=== PATIENT | female | born 1995 | race Caucasian/White ===

== ENCOUNTER 2023-01-13 20:50 | Emergency (ER) | payer SELFPAY ==
[2023-01-13] MEDS ORDERED: EPINEPHrine 1 MG/ML SDV IM ONE (21:00)
[2023-01-13] MEDS ORDERED: Sodium Chloride 0.9% 500 ML IV ONE (21:02)
[2023-01-13] MEDS ORDERED: diphenhydrAMINE 50 MG/ML SDV IVPUSH ONE (21:03)
[2023-01-13] MEDS ORDERED: Sodium Chloride 0.9% 500 ML IV SCH (21:30)
[2023-01-17] MEDS ORDERED: Sodium Chloride 0.9% 10 ML Syringe FLUSH PRN (20:42)
== END 2023-01-13 22:00 | disposition home or self-care (01) ==
LOC: LL.ED 20:50 → SUPCPDRO 20:50 → LL.ED 22:00
DX: T63.481D Toxic effect of venom of other arthropod, accidental (unintentional), subsequent encounter (principal); Z88.0 Allergy status to penicillin
CPT/HCPCS: 96372; 96374; 99283; 99283-25; J0171; J1200

== ENCOUNTER 2023-02-22 09:16 | Emergency (ER) | payer SELFPAY | END 2023-02-22 09:20 | disposition left against medical advice (07) | LOC: LL.ED 09:16 | DX: Z53.21 Procedure and treatment not carried out due to patient leaving prior to being seen by health care provider (principal) ==

== ENCOUNTER 2023-02-22 10:41 | Emergency (ER) | payer MEDICAID ==
[2023-02-22] MEDS ORDERED: Ketorolac 30 MG/ML SDV IM ONE (10:53)
[2023-02-22] MEDS ORDERED: Sodium Chloride 0.9% 1,000 ML IV ONE (11:20)
[2023-02-22] MEDS ORDERED: Ondansetron 4 MG Tab.DIS PO ONE (11:20)
[2023-02-22] MEDS ORDERED: Naloxone 0.4 MG/ML SDV IVPUSH PRN (11:21)
[2023-02-22] MEDS ORDERED: fentaNYL 50 MCG/ML SDV IVPUSH ONE (11:21)
[2023-02-22 11:22] LABS: BASOPHILS ABSOLUTE AUTO 0.05 K/uL (0.00-0.20); BASOPHILS PERCENT AUTO 0.2 % (0.0-2.0); EOSINOPHILS ABSOLUTE AUTO 0.17 K/uL (0.00-0.50); EOSINOPHILS PERCENT AUTO 0.8 % (0.0-5.0); HEMATOCRIT 41.4 % (34.0-46.0); HEMOGLOBIN 13.8 g/dL (11.7-15.5); LYMPHOCYTES ABSOLUTE AUTO 1.66 K/uL (0.50-3.50); LYMPHOCYTES PERCENT AUTO 7.7 % (10.0-50.0); MEAN CORPUSCULAR HEMOGLOBIN 30.8 pg (28.2-33.3); MEAN CORPUSCULAR HGB CONC 33.3 g/dL (31.7-36.0); MEAN CORPUSCULAR VOLUME 92.4 fL (84.0-98.0); MONOCYTES ABSOLUTE AUTO 1.02 K/uL (0.00-1.00); MONOCYTES PERCENT AUTO 4.7 % (2.0-14.0); NEUTROPHILS ABSOLUTE AUTO 18.64 K/uL (1.40-7.00); NEUTROPHILS PERCENT AUTO 86.6 % (45.0-80.0); PLATELET COUNT,PLT 281 K/uL (150-350); RED BLOOD CELL COUNT 4.48 M/uL (3.77-5.09); RED CELL DISTRIBUTION WIDTH 14.2 % (11.2-14.1); WHITE BLOOD CELL COUNT,WBC 21.5 K/uL (4.0-10.2)
[2023-02-22 11:39] LABS: PROTHROMBIN TIME 10.3 SEC (9.0-11.1)
[2023-02-22 11:43] LABS: ACETAMINOPHEN 17.4 ug/mL (10.0-30.0); ALANINE AMINOTRANSFERASE,ALT 17 U/L (12-78); ALBUMIN 3.4 g/dL (3.4-5.0); ALKALINE PHOSPHATASE 91 IU/L (46-116); ASPARTATE AMNIOTRANSFERASE,AST 21 U/L (15-37); BILIRUBIN TOTAL 0.3 mg/dL (0.2-1.0); BLOOD UREA NITROGEN,BUN 8 mg/dL (7-18); CALCIUM 8.3 mg/dL (8.5-10.1); CHLORIDE,CL 106 mmol/L (98-107); CREATININE 1.09 mg/dL (0.51-1.17); EST CRCL DRUG DOSING (CG) 76.06 mL/min; GLUCOSE RANDOM 129 mg/dL (70-99); POTASSIUM,K 3.9 mmol/L (3.5-5.1); PROTEIN TOTAL,TP 6.6 g/dL (6.4-8.2); SODIUM,NA 139 mmol/L (136-145)
[2023-02-22 11:43] LABS: AMPHETAMINES SCREEN, URINE POSITIVE (NEGATIVE); BARBITURATE SCREEN,URINE NEGATIVE (NEGATIVE); BENZODIAZEPINES SCREEN,URINE NEGATIVE (NEGATIVE); COCAINE METABOLITES,URINE NEGATIVE (NEGATIVE); EDDP,URINE SCREEN NEGATIVE (NEGATIVE); METHAMPHETAMINES SCREEN, URINE POSITIVE (NEGATIVE); TCA SCREEN,URINE NEGATIVE (NEGATIVE); THC SCREEN,URINE 50 NG/ML POSITIVE (NEGATIVE)
[2023-02-22 11:45] LABS: BUPRENORPHINE SCREEN,URINE NEGATIVE (NEGATIVE); OXYCODONE SCREEN,URINE NEGATIVE (NEGATIVE)
[2023-02-22 11:46] LABS: ESTIMATED GFR 72 mL/min (>=60); LACTIC ACID 2.6 mmol/L (0.4-2.0)
[2023-02-22 11:47] LABS: ETHANOL BLOOD MEDICAL < 0.000 g/dL (0.000-0.080)
== END 2023-02-22 13:52 ==
LOC: LL.ED 10:41
DX: S02.641A Fracture of ramus of right mandible, initial encounter for closed fracture (principal); F15.10 Other stimulant abuse, uncomplicated; F19.10 Other psychoactive substance abuse, uncomplicated; F17.210 Nicotine dependence, cigarettes, uncomplicated; Z88.0 Allergy status to penicillin; W22.8XXA Striking against or struck by other objects, initial encounter
CPT/HCPCS: 36415; 70450; 70486; 80053; 80143; 80179; 80305; 80307; 83605; 85025; 85610; 96361; 96372; 96374; 99284; 99285; A9270; J1885; J3010; J7030

== ENCOUNTER 2023-03-16 14:13 | Emergency (ER) | payer SELFPAY ==
[2023-03-16] MEDS ORDERED: Sodium Chloride 0.9% 10 ML Syringe FLUSH PRN (14:51)
[2023-03-16 15:09] LABS: BASOPHILS ABSOLUTE AUTO 0.03 K/uL (0.00-0.20); BASOPHILS PERCENT AUTO 0.3 % (0.0-2.0); EOSINOPHILS ABSOLUTE AUTO 0.38 K/uL (0.00-0.50); EOSINOPHILS PERCENT AUTO 3.3 % (0.0-5.0); HEMATOCRIT 37.8 % (34.0-46.0); HEMOGLOBIN 12.5 g/dL (11.7-15.5); LYMPHOCYTES ABSOLUTE AUTO 2.02 K/uL (0.50-3.50); LYMPHOCYTES PERCENT AUTO 17.8 % (10.0-50.0); MEAN CORPUSCULAR HEMOGLOBIN 30.5 pg (28.2-33.3); MEAN CORPUSCULAR HGB CONC 33.1 g/dL (31.7-36.0); MEAN CORPUSCULAR VOLUME 92.2 fL (84.0-98.0); MONOCYTES ABSOLUTE AUTO 0.88 K/uL (0.00-1.00); MONOCYTES PERCENT AUTO 7.8 % (2.0-14.0); NEUTROPHILS ABSOLUTE AUTO 8.04 K/uL (1.40-7.00); NEUTROPHILS PERCENT AUTO 70.8 % (45.0-80.0); PLATELET COUNT,PLT 301 K/uL (150-350); RED CELL DISTRIBUTION WIDTH 13.2 % (11.2-14.1); WHITE BLOOD CELL COUNT,WBC 11.4 K/uL (4.0-10.2)
[2023-03-16] MEDS ORDERED: Ketorolac 15 MG/ML SDV IM ONE (15:12)
[2023-03-16] MEDS ORDERED: cefTRIAXone 1 GM in Sodium Chloride 0.9% 100 ML IV ONE (15:19)
[2023-03-16 15:54] LABS: APPEARANCE,URINE SLIGHTLY CLOUDY; BILIRUBIN,URINE NEGATIVE (NEGATIVE); COLOR,URINE YELLOW; GLUCOSE,URINE NEGATIVE (NEGATIVE); KETONES,URINE NEGATIVE (NEGATIVE); LEUKOCYTE ESTERASE,URINE NEGATIVE (NEGATIVE); NITRITE,URINE NEGATIVE (NEGATIVE); OCCULT BLOOD,URINE MODERATE (NEGATIVE); PH,URINE 5.5 (5.0-9.0); PROTEIN,URINE NEGATIVE (NEGATIVE); UROBILINOGEN,URINE 0.2 E.U./dL (0.2-1.0)
[2023-03-16 16:02] LABS: AMPHETAMINES SCREEN, URINE POSITIVE (NEGATIVE); BARBITURATE SCREEN,URINE NEGATIVE (NEGATIVE); BENZODIAZEPINES SCREEN,URINE NEGATIVE (NEGATIVE); COCAINE METABOLITES,URINE NEGATIVE (NEGATIVE); EDDP,URINE SCREEN NEGATIVE (NEGATIVE); METHAMPHETAMINES SCREEN, URINE POSITIVE (NEGATIVE); TCA SCREEN,URINE NEGATIVE (NEGATIVE); THC SCREEN,URINE 50 NG/ML POSITIVE (NEGATIVE)
[2023-03-16 16:05] LABS: BUPRENORPHINE SCREEN,URINE NEGATIVE (NEGATIVE); OXYCODONE SCREEN,URINE NEGATIVE (NEGATIVE)
[2023-03-16 16:20] LABS: BACTERIA,URINE FEW /HPF (NONE TO FEW); EPITHELIAL CELLS,URINE FEW /LPF; MUCUS,URINE MODERATE /LPF (NEGATIVE); WBC,URINE 0-5 /HPF
[2023-03-16] MEDS ORDERED: Ketorolac 15 MG/ML SDV IVPUSH ONE (16:50)
[2023-03-16 18:22] LABS: ALANINE AMINOTRANSFERASE,ALT 24 U/L (12-78); ALBUMIN 3.3 g/dL (3.4-5.0); ALKALINE PHOSPHATASE 106 IU/L (46-116); ANION GAP 8.8 meq/L (7-15); ASPARTATE AMNIOTRANSFERASE,AST 22 U/L (15-37); BLOOD UREA NITROGEN,BUN 12 mg/dL (7-18); CALCIUM 8.5 mg/dL (8.5-10.1); CARBON DIOXIDE,CO2 24.2 mmol/L (21.0-32.0); CHLORIDE,CL 106 mmol/L (98-107); CREATININE 0.76 mg/dL (0.51-1.17); GLUCOSE RANDOM 95 mg/dL (70-99); PROTEIN TOTAL,TP 6.6 g/dL (6.4-8.2); SODIUM,NA 139 mmol/L (136-145)
[2023-03-16 18:23] LABS: ESTIMATED GFR 111 mL/min (>=60)
[2023-03-16 18:33] LABS: BILIRUBIN TOTAL 0.1 mg/dL (0.2-1.0)
== END 2023-03-16 19:00 | disposition home or self-care (01) ==
LOC: LL.ED 14:13
DX: K12.2 Cellulitis and abscess of mouth (principal); F15.10 Other stimulant abuse, uncomplicated; F17.210 Nicotine dependence, cigarettes, uncomplicated; Z88.0 Allergy status to penicillin; Z98.890 Other specified postprocedural states
CPT/HCPCS: 36415; 70486; 80053; 80305; 80307; 81001; 81025; 85025; 96365; 96375; 99284; J0696; J1885; J3490

== ENCOUNTER 2023-04-22 05:35 | Emergency (ER) | payer MEDICAID ==
[2023-04-22] MEDS: Take Home: Clindamycin HCl 150 MG, 12 Cap Pack PO ONE (06:30)
== END 2023-04-22 06:38 | disposition home or self-care (01) ==
LOC: LL.ED 05:35
DX: T81.49XA Infection following a procedure, other surgical site, initial encounter (principal); F17.200 Nicotine dependence, unspecified, uncomplicated
CPT/HCPCS: 99282; A9270-GY

== ENCOUNTER 2023-07-08 16:32 | Emergency (ER) | payer MEDICAID ==
[2023-07-08] MEDS: Take Home: Ondansetron 4 MG Tab.DIS, 5 Tab Pack PO ONE (17:44)
== END 2023-07-08 17:48 | disposition home or self-care (01) ==
LOC: LL.ED 16:32
DX: S02.64 Fracture of ramus of mandible (principal); M27.2 Inflammatory conditions of jaws; F17.210 Nicotine dependence, cigarettes, uncomplicated; Z79.899 Other long term (current) drug therapy; Z88.0 Allergy status to penicillin
CPT/HCPCS: 99283; Q0162

== ENCOUNTER 2023-07-18 09:32 | Emergency (ER) | payer MEDICAID ==
[2023-07-18] MEDS: Loratadine 10 MG Tab PO ONE (10:35)
== END 2023-07-18 10:45 | disposition home or self-care (01) ==
LOC: LL.ED 09:32
DX: O99.711 Diseases of the skin and subcutaneous tissue complicating pregnancy, first trimester (principal); O21.9 Vomiting of pregnancy, unspecified; L23.9 Allergic contact dermatitis, unspecified cause; Z3A.08 8 weeks gestation of pregnancy; Z88.0 Allergy status to penicillin
CPT/HCPCS: 99283; A9270

== ENCOUNTER 2023-10-06 08:37 | Emergency (ER) | payer BC, MEDICAID ==
[2023-10-06 09:08] LABS: BASOPHILS ABSOLUTE AUTO 0.03 K/uL (0.00-0.20); BASOPHILS PERCENT AUTO 0.2 % (0.0-2.0); EOSINOPHILS ABSOLUTE AUTO 0.18 K/uL (0.00-0.50); EOSINOPHILS PERCENT AUTO 1.2 % (0.0-5.0); HEMATOCRIT 34.5 % (34.0-46.0); HEMOGLOBIN 11.7 g/dL (11.7-15.5); LYMPHOCYTES ABSOLUTE AUTO 1.42 K/uL (0.50-3.50); LYMPHOCYTES PERCENT AUTO 9.1 % (10.0-50.0); MEAN CORPUSCULAR HGB CONC 33.9 g/dL (31.7-36.0); MEAN CORPUSCULAR VOLUME 91.3 fL (84.0-98.0); MONOCYTES ABSOLUTE AUTO 0.69 K/uL (0.00-1.00); MONOCYTES PERCENT AUTO 4.4 % (2.0-14.0); NEUTROPHILS PERCENT AUTO 85.1 % (45.0-80.0); PLATELET COUNT,PLT 263 K/uL (150-350); RED BLOOD CELL COUNT 3.78 M/uL (3.77-5.09); RED CELL DISTRIBUTION WIDTH 13.1 % (11.2-14.1); WHITE BLOOD CELL COUNT,WBC 15.5 K/uL (4.0-10.2)
[2023-10-06 09:24] LABS: APPEARANCE,URINE TURBID; BILIRUBIN,URINE NEGATIVE (NEGATIVE); COLOR,URINE DARK YELLOW; GLUCOSE,URINE NEGATIVE (NEGATIVE); KETONES,URINE NEGATIVE (NEGATIVE); LEUKOCYTE ESTERASE,URINE NEGATIVE (NEGATIVE); NITRITE,URINE NEGATIVE (NEGATIVE); OCCULT BLOOD,URINE NEGATIVE (NEGATIVE); PH,URINE 8.5 (5.0-9.0); PROTEIN,URINE NEGATIVE (NEGATIVE); UROBILINOGEN,URINE 0.2 E.U./dL (0.2-1.0)
[2023-10-06 09:27] LABS: ALANINE AMINOTRANSFERASE,ALT 44 U/L (12-78); ALBUMIN 2.6 g/dL (3.4-5.0); ALKALINE PHOSPHATASE 65 IU/L (46-116); ANION GAP 8.9 meq/L (7-15); ASPARTATE AMNIOTRANSFERASE,AST 25 U/L (15-37); BILIRUBIN TOTAL 0.2 mg/dL (0.2-1.0); BLOOD UREA NITROGEN,BUN 8 mg/dL (7-18); CALCIUM 8.1 mg/dL (8.5-10.1); CARBON DIOXIDE,CO2 23.1 mmol/L (21.0-32.0); CHLORIDE,CL 104 mmol/L (98-107); CREATININE 0.57 mg/dL (0.51-1.17); GLUCOSE RANDOM 100 mg/dL (70-99); POTASSIUM,K 4.1 mmol/L (3.5-5.1); PROTEIN TOTAL,TP 6.1 g/dL (6.4-8.2); SODIUM,NA 136 mmol/L (136-145)
[2023-10-06 09:33] LABS: ESTIMATED GFR 128 mL/min (>=60)
[2023-10-06] MEDS: Ondansetron 4 MG Tab.DIS PO ONE (09:47)
== END 2023-10-06 10:06 | disposition home or self-care (01) ==
LOC: LL.ED 08:37
DX: O99.891 Other specified diseases and conditions complicating pregnancy (principal); R10.32 Left lower quadrant pain; Z3A.18 18 weeks gestation of pregnancy; Z79.899 Other long term (current) drug therapy
CPT/HCPCS: 36415; 80053; 81003; 83605; 85025; 99284

== ENCOUNTER 2024-11-01 11:55 | Emergency (ER) | payer MEDICAID ==
[2024-11-01] MEDS ORDERED: Naloxone 0.4 MG/ML SDV IVPUSH PRN (12:04)
[2024-11-01] MEDS: Ondansetron 4 MG/2 ML SDV IVPUSH ONE (12:20)
[2024-11-01] MEDS: fentaNYL 50 MCG/ML SDV IVPUSH ONE (12:25)
[2024-11-01] MEDS: Sodium Chloride 0.9% 10 ML Syringe FLUSH PRN (12:26)
[2024-11-01 12:46] LABS: ALBUMIN 3.5 g/dL (3.4-5.0); ANION GAP 7.4 meq/L (7-15); BILIRUBIN TOTAL 0.3 mg/dL (0.2-1.0); CALCIUM 8.6 mg/dL (8.5-10.1); CARBON DIOXIDE,CO2 27.6 mmol/L (21.0-32.0); CREATININE 0.89 mg/dL (0.51-1.17); EST CRCL DRUG DOSING (CG) 89.81 mL/min; POTASSIUM,K 4.1 mmol/L (3.5-5.1); PROTEIN TOTAL,TP 7.2 g/dL (6.4-8.2)
[2024-11-01 12:49] LABS: BASOPHILS ABSOLUTE AUTO 0.06 K/uL (0.00-0.20); BASOPHILS PERCENT AUTO 0.7 % (0.0-2.0); EOSINOPHILS ABSOLUTE AUTO 0.25 K/uL (0.00-0.50); EOSINOPHILS PERCENT AUTO 2.9 % (0.0-5.0); HEMATOCRIT 45.2 % (34.0-46.0); HEMOGLOBIN 15.4 g/dL (11.7-15.5); IMMATURE GRAN ABSOLUTE AUTO 0.01 10^3/uL (0.00-0.04); IMMATURE GRAN PERCENT AUTO 0.1 % (0.0-0.4); LYMPHOCYTES ABSOLUTE AUTO 1.92 K/uL (0.50-3.50); LYMPHOCYTES PERCENT AUTO 21.9 % (10.0-50.0); MEAN CORPUSCULAR HEMOGLOBIN 30.8 pg (28.2-33.3); MEAN CORPUSCULAR HGB CONC 34.1 g/dL (31.7-36.0); MEAN CORPUSCULAR VOLUME 90.4 fL (84.0-98.0); MONOCYTES PERCENT AUTO 4.6 % (2.0-14.0); NEUTROPHILS ABSOLUTE AUTO 6.13 K/uL (1.40-7.00); NEUTROPHILS PERCENT AUTO 69.8 % (45.0-80.0); PLATELET COUNT,PLT 238 K/uL (150-350); RED CELL DISTRIBUTION WIDTH 12.5 % (11.2-14.1); WHITE BLOOD CELL COUNT,WBC 8.8 K/uL (4.0-10.2)
== END 2024-11-01 13:48 | disposition home or self-care (01) ==
LOC: LL.ED 11:55 → SUPCPDRO 12:00 → LL.ED 13:48
DX: M54.6 Pain in thoracic spine (principal); Z79.899 Other long term (current) drug therapy
CPT/HCPCS: 36415; 71046; 80053; 84484; 85025; 93005; 96374; 96375; 99284-25; J2405; J3010